=== PATIENT | male | born 1935 | race Caucasian/White ===

== ENCOUNTER 2016-08-30 13:33 | Inpatient (IN) | payer MEDICARE ==
[2016-08-30] VITALS (9 sets, daily range): BP systolic 89–132; BP diastolic 50–82
[~2016-08-30] VITALS: Ht 183 cm; Wt 71.0 kg
--- NOTE | ~2016-08-30 | PR ---
[place], [place] PROGRESS NOTE NAME: GRACIELA MAYNARD UNIT #: [id number] ROOM: 406 DOCTOR: CANDELARIO TAY MD,SHERRIE BIRTHDATE: [birth year] DOS: 09/01/2016 SUBJECTIVE: He has been noted without any ongoing acute complaint, shortness of breath was noted partially decreased. The patient has not been noted with any symptoms of chest pain. Mild to moderate nonproductive cough for this patient was noted. There were no symptoms of abdominal pain. OBJECTIVE: VITAL SIGNS: For the patient, which has been recorded shows the temperature of the patient noted as normal. The respiratory rate of 18, heart rate of 82, blood pressure 112/62-104/60. Pulse oxygen saturation of the patient was noted on 3 liters nasal canula 99% saturation. HEENT: Shows head was atraumatic. Eyes: Nonicterus. NECK: Supple. CARDIOVASCULAR SYSTEM: S1, S2 is audible. LUNGS: No wheezing. Inspiratory crackles noted in the lungs bilaterally, unchanged. ABDOMEN: Soft, nontender. LABORATORY DATA: CBC: WBC count 13,000, hemoglobin 13.2, hematocrit 40.9, platelet count of 181,000. BMP of the patient, glucose 150, BUN and creatinine was normal. Urine culture showed no bacterial growths. IMPRESSION: 1. The patient with acute hypoxic respiratory failure with suspected interstitial pulmonary fibrosis. 2. Superimposed pulmonary process, the patient acute pneumonia and others for this patient has been already considered as well. ASSESSMENT AND MANAGEMENT: For this patient has been discussed with the patient and his daughter in detail at the bedside. Most likely, the patient has been developing progressive interstitial pulmonary fibrosis as admitted having symptoms of shortness of breath, gradually occurring with exertion with exercise intolerance for over a year. PLAN OF TREATMENT: The patient will be continued on the corticosteroids for this patient at this time. The dose has been ordered to be decreased. He will be requiring oxygen supplementation, most likely prior to the discharge in the home settings. Oxygen assessment patient for potential discharge for the patient has been ordered for this patient to be done. Reduce the dose of the corticosteroids as well. Continuation of the therapy, plan and management, usual treatment. Supportive care. Other treatment and plan of management. [place], [place] PROGRESS NOTE NAME: GRACIELA MAYNARD UNIT #: [id number] ROOM: 406 DOCTOR: SHERRIE FREY MD BIRTHDATE: [birth year] SHERRIE PALOMINO MD CM:PNMICHELLE 1254 SHERRIE TAY MD 09/01/16 2227 interface
--- NOTE | ~2016-08-30 | PR ---
[place], [place] PROGRESS NOTE NAME: GRACIELA MAYNARD [facility] #: [id number] UNIT #: [id number] ROOM: 406 DOCTOR: CANDELARIO TAY MD,SHERRIE BIRTHDATE: [birth year] DOS: 09/03/2016 SUBJECTIVE: The patient was seen and examined on 09/03/2016. He has been noted comfortable at this time. The patient has not been discharged yesterday as he has been noted with hypoxia. The patient moved from the bed to the bathroom. He had been continued on oxygen supplementation and other previous treatment without change in the last 24 hours. OBJECTIVE: VITAL SIGNS: Normal temperature, respiratory rate 20, heart rate 84, blood pressure 103/58. The pulse oxygen saturation of the patient recorded as 95% on 3.5 liters nasal cannula, 4 liter nasal cannula 99% saturation recorded at rest. HEENT: Head was atraumatic. Eyes nonicterus. NECK: Supple. CARDIOVASCULAR: S1 and S2 audible. LUNGS: Noted without any wheezing. Inspiratory crackles noted, unchanged from previous examination. ABDOMEN: Soft, nontender. LABORATORY DATA: BUN today noted 26, creatinine was normal. CBC of the patient that was done this morning shows mild anemia, otherwise normal CBC. IMPRESSION: 1. Interstitial pulmonary fibrosis with acute hypoxic respiratory failure with possible chronic hypoxia as well. 2. Dyspnea with exertion, not uncommon. PLAN OF TREATMENT: No change in the pulmonary standpoint, discharge the patient home whenever is necessary on oral medications and continuous oxygen supplementation. Usual care. SHERRIE PALOMINO MD CM:PNTRANS [id number] SHERRIE TAY MD 09/03/169 interface
--- NOTE | ~2016-08-30 | WRIGHTHP ---
[place], [place] PATIENT HISTORY AND PHYSICAL EXAM NAME: GRACIELA MAYNARD [facility] #: [id number] UNIT #: [id number] ROOM: 406 DOCTOR: LINDEN GRANADO DO BIRTHDATE: [birth year] DOS: 08/30/2016 PRIMARY CARE PHYSICIAN: Dr. Zepeda. HISTORY OF PRESENT ILLNESS: The patient was seen and evaluated with the resident on 08/30/2016. Please see the resident's note for further details. ASSESSMENT: 1. Acute pneumonitis. 2. Acute respiratory failure with hypoxia. 3. Acute renal failure with history of chronic kidney disease stage 3. 4. Coronary artery disease with history of coronary artery bypass graft in the past as well as multiple cardiac stents. 5. History of hypertension. 6. Hyperlipidemia. 7. Gastroesophageal reflux disease. 8. History of bilateral carotid endarterectomies. PLAN: Continue IV steroids, antibiotics and aerosol treatments. Repeat labs in the morning. Consult Dr. Zhou. LINDEN GRANADO DO CM:HISPHYS:PATIENT HISTORY AND PHYSICAL EXAMINATION 14 01 LINDEN GRANADO DO 08/30/162200 interface
--- NOTE | ~2016-08-30 | PR ---
[place], [place] PROGRESS NOTE NAME: GRACIELA MAYNARD UNIT #: [id number] ROOM: 406 DOCTOR: SHERRIE FREY MD BIRTHDATE: [birth year] DOS: 09/02/2016 SUBJECTIVE: He was seen and examined on 09/02/2016. The patient is comfortably resting on the bed, has not been noted with symptoms of chest pain, coughing, or sputum expectoration. Shortness of breath was described with exertion. He has been assessed for oxygen needs for home yesterday. OBJECTIVE: VITAL SIGNS: Shows normal temperature, respiratory rate of 18, heart rate of 72, blood pressure of 95/51 to 102/50. HEENT: Examination shows head was atraumatic. Eyes: No icterus. NECK: Supple. CARDIOVASCULAR: S1, S2 audible. LUNGS: Noted inspiratory crackles bilaterally. ABDOMEN: Soft and nontender. LABORATORY DATA: Mycoplasma IgG and IgM were noted as normal. The BMP for this patient, BUN 25, creatinine was normal. CBC: WBC count 12.7, hemoglobin 12.9, hematocrit 38.8 with a platelet count was noted as normal. The anti-Lizet-1 antibody was noted as negative. IMPRESSION: The patient with acute hypoxic respiratory failure, most likely chronic hypoxic respiratory failure, undiagnosed, currently treated for interstitial infiltration with possibly superimposed pulmonary infection. The etiology of the interstitial pulmonary fibrosis remains unclear. Some of the workup has been started and available partially and noted to be negative. Possibility of interstitial pulmonary fibrosis for this patient idiopathic or UIP was considered. PLAN OF TREATMENT: The patient could be discharged on tapering dose of prednisone, oral antibiotics and outpatient followup. The oxygen supplementation will be needed, 3 liters nasal cannula continuous use for the patient for the medical management of hypoxic respiratory failure. Other treatment plan and management to be continued as well. Usual care. Other supportive care and other therapies. Discharge planning was discussed with the patient's daughter and the primary care attending. [place], [place] PROGRESS NOTE NAME: GRACIELA MAYNARD UNIT #: [id number] ROOM: 406 DOCTOR: SHERRIE FREY MD BIRTHDATE: [birth year] SHERRIE PALOMINO MD CM:PNTRANS 1322 SHERRIE TAY MD 09/02/16 2243 interface
--- NOTE | ~2016-08-30 | CON ---
[place], [place] REPORT OF CONSULTATION NAME: GRACIELA MAYNARD [facility] #: [id number] UNIT #: [id number] ROOM: 406 DOCTOR: CANDELARIO TAY MD,SHERRIE BIRTHDATE: [birth year] DOS: 08/31/2016 The consultation requested by Dr. Bry Nieves, the hospitalist. REASON FOR CONSULTATION: To assess the patient for possibility of interstitial lung disease with respiratory failure. HISTORY OF PRESENT ILLNESS: An 81-year-old white male who was seen and examined on 08/31/2016. The history was also obtained from the patient's son as well at the time of the assessment. The patient presented to the hospital as he has been experiencing increased shortness of breath, occurring with exertional activities. The patient's symptoms have been noted progressive for the past few days. The patient stated symptoms of shortness of breath, has been occurring about 6 months ago, which has been noted significantly worsened. The patient underwent lumbar laminectomy done previously. He does have symptoms of very mild cough. The patient denies symptoms of wheezing or chest pain. The patient denies any symptoms of hemoptysis. REVIEW OF SYSTEMS: CONSTITUTIONAL: The patient is limited, but noted as symptoms of weakness and fatigue for this patient was described for the past several months. Denies any symptoms of loss of appetite. He has not reported any abnormal weight loss history. EYES: Denies any burning, redness, or tenderness. EARS, NOSE, THROAT SYMPTOMS: No sore throat, hoarseness, or otalgia. CARDIOVASCULAR: Denies anginal pain, edema or pain of the lower extremities. GASTROINTESTINAL: Denies symptoms of nausea, vomiting, diarrhea, abdominal pain, hematemesis, melena, hematochezia or dysphagia. GENITOURINARY: Denies dysuria, suprapubic pain, hematuria. SKIN: No lesions or rashes. CENTRAL NERVOUS SYSTEM: Generalized weakness without symptoms of dizziness, headache, diplopia, tingling sensation of the extremities. Remaining systems were reviewed with the patient, they were noted all negative. PAST MEDICAL HISTORY: 1. Coronary artery disease noted with previous coronary artery bypass grafting and coronary stents insertion. 2. Degenerative arthritis, lower back. 3. History of essential hypertension. 4. Hyperlipidemia. PAST SURGICAL HISTORY: 1. Coronary artery bypass grafting many years ago. 2. Several cardiac catheterizations and coronary artery stents insertion. 3. Bilateral carotid artery stents. 4. Lumbar laminectomy. SOCIAL HISTORY: The patient denies any history of alcohol use, illicit drug use. He does not have any occupation related pulmonary exposure. The patient stated he had smoked only a year or so when he was age [age] years old, but have [place], [place] REPORT OF CONSULTATION [id number] UNIT #: [id number] ROOM: 406 DOCTOR: SHERRIE FREY MD BIRTHDATE: [birth year] not smoked cigarettes for this patient as a regular smoker. The patient was self employed and has not been reported any exposure to any dust or chemicals. FAMILY HISTORY: Mother at the age of 80 plus years of unknown problems. Father at age of 70 due to complication of coronary artery disease. HOME MEDICATIONS: Listed as use of Norvasc, aspirin, calcium, vitamin D3, Plavix, famotidine, Imdur SA, Namenda XR, metoprolol tartrate, multivitamin, Crestor and multivitamin and other p.r.n. medications. DRUG ALLERGIES: Noted allergy to PENICILLINS. PHYSICAL EXAMINATION: GENERAL: This is an 81-year-old elderly male who has been currently comfortably resting on the bed without any distress. VITAL SIGNS: Height for the patient noted as 6 feet, weight of 156 pounds, BMI 21.2. The vital signs of the patient which has been recorded on admission normal temperature, respiratory rate of 17-18, heart rate 78-74, blood pressure 80/53-132/82. Intake for the patient recorded at 2000, output 550 mL. Pulse oxygen saturation on room air 80% with 3 liters nasal cannula. The patient was noted 98% saturation. HEENT: Head was atraumatic, mild senile hearing loss. NECK: Supple. Head was atraumatic. CARDIOVASCULAR SYSTEM: S1, S2 is audible. LUNGS: For the patient was noted without any wheezing or crackles the patient noted in the lungs bilaterally. ABDOMEN: Soft, nontender. EXTREMITIES: Shows no edema. CENTRAL NERVOUS SYSTEM: Cranial nerves II through XII intact. No focal deficits. MUSCULOSKELETAL: The patient was noted without any deformities. LABORATORY DATA: The rapid influenza A and B nasal washing antigens yesterday was noted as negative. Lactic acid 1.9 yesterday. CK-MB and troponin for this patient were noted as normal in the patient's first set. CBC for the patient that was noted on 08/30/2016 was noted as normal. CBC with normal WBC, hemoglobin, hematocrit and platelet count. Lactic acid on admission was noted 5.9. CMP of the patient that was done on 08/30/2016 showed BUN 28, creatinine 1.98, glucose 130. For this patient, magnesium 2.2. Influenza A and B, nasal washing antigens were negative. CK-MB, troponin of patient yesterday and this morning were noted as normal. CBC of patient this morning, the patient remains normal. CMP of the patient that was done this morning shows BUN 21, creatinine 1.81, glucose 154, carbon dioxide was 20. PT and PTT were noted normal this morning. B12 and folic acid levels were noted as normal. Vitamin D level noted decreased. Arterial blood gas that I ordered this morning on 3 L nasal cannula, pH of 7.35, pCO2 of 31.2, pO2 of 128. Review of the radiology data for this patient, the last chest x-ray of the patient, which has been done in this hospital prior to the current chest x-ray done on 10/04/2011, which was personally reviewed and noted free of any acute [place], [place] REPORT OF CONSULTATION NAME: [facility] [id number] UNIT #: [id number] ROOM: [facility] DOCTOR: CANDELARIO TAY MDSHERRIE BIRTHDATE: [birth year] abnormalities related to the lungs. The chest x-ray, 2-view, which was done yesterday in the Emergency Room was personally reviewed, shows evidence of diffuse interstitial infiltration of the lungs were noted without any evidence of pleural effusions. The CT scan of the chest, which was done without contrast for the patient yesterday as well was personally reviewed and it shows findings of bilateral interstitial pattern for this patient with appear like UIP distribution for this patient with mild honeycombing. Nonspecific enlargement of the lymph nodes for the patient was also noted. The lymph nodes of this patient in subcarinal with short axis as 1.6 cm in the precarinal area, AP windows and others. The exact evaluation of the mediastinum is limited because of lack of use of IV contrast with the study. IMPRESSION: 1. The patient who has been currently admitted to the hospital noted with acute hypoxic respiratory failure, most likely acute in nature would be considered. The patient has not been known with past history of hypoxia. 2. Interstitial pattern for this patient was noted diffusely in the lungs bilateral with lymphadenopathy with possible differential diagnosis of sarcoidosis for this patient, chronic hypersensitivity pneumonitis, less likely to be acute eosinophilic pneumonia, possibility of acute interstitial pneumonitis for this patient with bacterial nature or viral could be considered in the differential diagnosis as well. 3. History of long-term coronary artery disease as well. 4. The patient most likely has acute kidney injury with possibility of hypotension and ATN, partially improved from yesterday. PLAN OF TREATMENT: Workup for the interstitial lung disease has been ordered with serology. TB Gold test was also noted as part of the workup. The patient would be continued on the Levaquin for this patient. Corticosteroids has been started on the patient yesterday which will be continued for this patient. The dose will be gradually decreased. Based on the further assessment, additional management could be ordered and the assessment will be ordered accordingly. Supportive therapy, plan of management, and other care. Continue supplementation of the oxygen to maintain saturation 90% greater. The patient will not require use of the BiPAP at the present time. All other supportive therapy, plan of care as in progress as well. Usual care. Monitoring kidney functions as well. Lactic acid of the patient, etiology was not very clear to me, may be related to the sepsis seemed to be resolved. Thanks for allowing me to participate in the care of this patient. [place], [place] REPORT OF CONSULTATION NAME: GRACIELA MAYNARD [facility] UNIT #: [id number] ROOM: 406 DOCTOR: SHERRIE FREY MD BIRTHDATE: [birth year] SHERRIE PALOMINO MD CM:CONSTR:REPORT OF CONSULTATION 1334 09/01/16 0918 interface
[~2016-08-30 13:33] MED LIST: AMLODIPINE5 MG PO; AZOPT 1% 10 ML5 ML INTRAOC; AZOPT OP; BETAXOLOL OP; COMPAZINE10 MG PO; CRESTOR20 MG PO; CRESTOR40 MG PO; DARVOCET N 1001 TAB PO; ECOTRIN81 MG PO; FAMOTIDINE20 MG PO; IMDUR SA60 M1 PO; LISINOPRIL20 MG PO; METOPROLOL25 MG PO; MULTIPLE VITAMI1 CAP PO; NORVASC5 MG PO; PERCOCET 325 MG1 TA2 PO; PLAVIX75 MG PO; PREDNISONE50 MG PO; TIMOPTIC 0.5% 55 ML OPH; ULTRAM50 MG PO; VICODIN 5-3001 EACH PO; XALATAN 2.5 ML2.5 M1 OP
[2016-08-30] MEDS ORDERED: NAMENDA-5 PO (13:48)
[2016-08-30 14:30] LABS: BASO # 0.1 10*3/uL (0.0-0.1); BASO % 1.1 % (0.0-1.0); EOS # 0.4 10*3/uL (0.0-0.4); EOS % 3.7 % (1.0-4.0); HEMATOCRIT 47.8 % (42.0-52.0); HEMOGLOBIN 15.4 g/dl (14.0-18.0); IG # 0.1 10*3/uL (0.0-0.1); LYMPH # 1.5 10*3/uL (1.3-4.4); LYMPH % 14.5 % (27.0-41.0); MEAN CELL VOLUME 101.1 fl (80.0-94.0); MEAN CORPUSCULAR HGB 32.6 pg (27.0-31.0); MEAN CORPUSCULAR HGB CONC 32.2 g/dl (33.0-37.0); MEAN PLATELET VOLUME 9.4 fl (9.6-12.3); MONO # 0.7 10*3/uL (0.1-1.0); MONO % 6.7 % (3.0-9.0); NEUT # 7.5 10*3/uL (2.3-7.9); NEUT % 73.5 % (47.0-73.0); PLATELET COUNT AUTOMATED 199 10*3/uL (130-400); RED BLOOD COUNT 4.73 10*6/uL (4.50-5.90); RED CELL DISTRI WIDTH 14.1 % (0-14.5); WHITE BLOOD COUNT 10.2 10*3/uL (4.8-10.8)
[2016-08-30 14:45] LABS: INTERNATIONAL NORM RATIO 1.1 (2.0-3.5); PROTHROMBIN TIME 11.4 SECONDS (9.0-12.4)
[2016-08-30 14:48] LABS: BILIRUBIN, TOTAL 0.7 mg/dl (0.2-1.0); CKMB 3.2 ng/ml (0.5-3.6); MAGNESIUM 2.2 mg/dL (1.5-2.1); POTASSIUM 5.1 mmol/L (3.5-5.1); TROPONIN I 0.034 ng/ml (<0.5)
[2016-08-30 16:27] LABS: LA>2 REFLEX 2 HR DRAW NOW
[2016-08-30 16:33] LABS: BILIRUBIN NEGATIVE (NEGATIVE); BLOOD 1+ (NEGATIVE); COLOR YELLOW (YELLOW); GLUCOSE NEGATIVE (NEGATIVE); KETONE NEGATIVE (NEGATIVE); LEUKO ESTERASE NEGATIVE (NEGATIVE); NITRITE NEGATIVE (NEGATIVE); PH 5.5 (5.0-9.0); PROTEIN 2+ (NEGATIVE); SPECIFIC GRAVITY >= 1.030 (1.005-1.030)
[2016-08-30 16:49] LABS: CLARITY SL CLOUDY (CLEAR); HYALINE CAST TNTC; MUCOUS TRACE; RBC 16-20 rbc/hpf (0-2); URINE REFLEX COMMENT YES (NO)
[2016-08-30] MEDS ORDERED: NAMENDA XR7 M1 PO (17:06)
[2016-08-30] MEDS ORDERED: CALCIUM 600600 M2 PO (18:04)
[2016-08-30] MEDS ORDERED: VITAMIN D-32000 UNI1 PO (18:05)
[2016-08-31] VITALS: BP 118/46
[2016-08-31 01:05] LABS: CKMB 2.8 ng/ml (0.5-3.6); TROPONIN I 0.034 ng/ml (<0.5)
[2016-08-31 06:22] LABS: BASO % 0.5 % (0.0-1.0); EOS % 0.2 % (1.0-4.0); HEMATOCRIT 45.7 % (42.0-52.0); HEMOGLOBIN 14.5 g/dl (14.0-18.0); LYMPH # 0.5 10*3/uL (1.3-4.4); LYMPH % 8.8 % (27.0-41.0); MEAN CELL VOLUME 101.1 fl (80.0-94.0); MEAN CORPUSCULAR HGB 32.1 pg (27.0-31.0); MEAN CORPUSCULAR HGB CONC 31.7 g/dl (33.0-37.0); MEAN PLATELET VOLUME 9.9 fl (9.6-12.3); MONO # 0.1 10*3/uL (0.1-1.0); NEUT # 5.1 10*3/uL (2.3-7.9); NEUT % 88.8 % (47.0-73.0); PLATELET COUNT AUTOMATED 189 10*3/uL (130-400); RED BLOOD COUNT 4.52 10*6/uL (4.50-5.90); RED CELL DISTRI WIDTH 13.9 % (0-14.5); WHITE BLOOD COUNT 5.8 10*3/uL (4.8-10.8)
[2016-08-31 06:30] LABS: TROPONIN I 0.027 ng/ml (<0.5)
[2016-08-31 06:59] LABS: BILIRUBIN, TOTAL 0.5 mg/dl (0.2-1.0); FREE T4 1.1 ng/dl (0.76-1.46); HEMOGLOBIN A1c 5.9 % (4.8-5.6); MAGNESIUM 2.2 mg/dL (1.5-2.1); PHOSPHOROUS 3.5 mg/dL (2.5-4.9); POTASSIUM 4.3 mmol/L (3.5-5.1); TOTAL PROTEIN 6.5 gm/dL (6.4-8.2)
[2016-08-31 07:23] LABS: PROTHROMBIN TIME 11.1 SECONDS (9.0-12.4)
[2016-08-31 07:34] LABS: FOLIC ACID 21.69 ng/mL (>5.38)
[2016-08-31 10:09] LABS: ABG CO2 CONTENT 18.2 mmol/L (23-27); ABG HCO3 17.2 mmol/l (22-26); ARTERIAL BLOOD GAS PH 7.356 (7.35-7.45)
[2016-08-31 12:00] VITALS: BP 102/69
[2016-08-31 16:00] VITALS: BP 96/52
[2016-08-31] MEDS ORDERED: CRESTOR20 M1 PO (16:01)
[2016-08-31] MEDS ORDERED: PLAVIX75 M1 PO (16:02)
[2016-08-31 20:00] VITALS: BP 120/62
[2016-09-01] VITALS: BP 129/67
[2016-09-01 06:17] LABS: BASO % 0.1 % (0.0-1.0); HEMATOCRIT 40.9 % (42.0-52.0); HEMOGLOBIN 13.2 g/dl (14.0-18.0); IG # 0.1 10*3/uL (0.0-0.1); LYMPH # 0.7 10*3/uL (1.3-4.4); LYMPH % 5.1 % (27.0-41.0); MEAN CELL VOLUME 99.8 fl (80.0-94.0); MEAN CORPUSCULAR HGB 32.2 pg (27.0-31.0); MEAN CORPUSCULAR HGB CONC 32.3 g/dl (33.0-37.0); MEAN PLATELET VOLUME 9.7 fl (9.6-12.3); MONO # 0.5 10*3/uL (0.1-1.0); MONO % 4.1 % (3.0-9.0); NEUT # 11.7 10*3/uL (2.3-7.9); PLATELET COUNT AUTOMATED 181 10*3/uL (130-400)
[2016-09-01 06:40] LABS: BUN 20 mg/dl (7-24); CARBON DIOXIDE 25 mmol/L (21-32); CHLORIDE 107 mmol/L (98-107); EST GLOM FILT AFRICAN AMERICAN > 60 ml/min; GLUCOSE 150 mg/dL (65-99); POTASSIUM 4.5 mmol/L (3.5-5.1); SODIUM 142 mmol/L (136-145)
[2016-09-01 08:00] VITALS: BP 104/60
[2016-09-01 08:08] LABS: RHEUMATOID ARTHRITIS FACTOR 114.9 IU/mL (0.0-13.9)
[2016-09-01 09:10] LABS: IMMUNOGLOBULIN IgE 002170 334 IU/mL (0-100)
[2016-09-01 12:00] VITALS: BP 112/62
[2016-09-01 15:08] LABS: ANGIOTENSIN-CONVERTING ENZYME 37 U/L (14-82)
[2016-09-01 16:00] VITALS: BP 97/58
[2016-09-01 20:00] VITALS: BP 100/58
[2016-09-01 21:00] VITALS: BP 106/60
[2016-09-02] VITALS: BP 107/58
[2016-09-02 00:07] LABS: IGG SUBCLASS 1 493 mg/dL (422-1292); IGG SUBCLASS 2 349 mg/dL (117-747); IGG SUBCLASS 3 194 mg/dL (41-129); IGG SUBCLASS 4 57 mg/dL (1-291)
[2016-09-02 06:38] LABS: BASO % 0.1 % (0.0-1.0); HEMATOCRIT 38.8 % (42.0-52.0); HEMOGLOBIN 12.9 g/dl (14.0-18.0); IG # 0.1 10*3/uL (0.0-0.1); LYMPH # 0.8 10*3/uL (1.3-4.4); MEAN CELL VOLUME 97.5 fl (80.0-94.0); MEAN CORPUSCULAR HGB 32.4 pg (27.0-31.0); MEAN CORPUSCULAR HGB CONC 33.2 g/dl (33.0-37.0); MEAN PLATELET VOLUME 9.8 fl (9.6-12.3); MONO # 0.9 10*3/uL (0.1-1.0); MONO % 7.3 % (3.0-9.0); NEUT # 10.9 10*3/uL (2.3-7.9); PLATELET COUNT AUTOMATED 187 10*3/uL (130-400); RED BLOOD COUNT 3.98 10*6/uL (4.50-5.90); WHITE BLOOD COUNT 12.7 10*3/uL (4.8-10.8)
[2016-09-02 07:22] LABS: ALBUMIN 2.8 gm/dl (3.1-4.5); ALKALINE PHOSPHATASE 82 U/L (45-117); BILIRUBIN, TOTAL 0.5 mg/dl (0.2-1.0); BUN 25 mg/dl (7-24); CARBON DIOXIDE 24 mmol/L (21-32); CHLORIDE 106 mmol/L (98-107); EST GLOM FILT AFRICAN AMERICAN > 60 ml/min; GLUCOSE 111 mg/dL (65-99); MAGNESIUM 2.1 mg/dL (1.5-2.1); POTASSIUM 4.6 mmol/L (3.5-5.1); SGOT/AST 42 IU/L (3-35); SGPT/ALT 27 U/L (12-78); SODIUM 141 mmol/L (136-145); TOTAL PROTEIN 5.9 gm/dL (6.4-8.2)
[2016-09-02 08:00] VITALS: BP 102/50
[2016-09-02 12:00] VITALS: BP 95/51
[2016-09-02] MEDS ORDERED: PREDNISONE10 MG PO (13:04)
[2016-09-02] MEDS ORDERED: OXYGEN NAS (13:04)
[2016-09-02] MEDS ORDERED: NEBULIZER (13:04)
[2016-09-02] MEDS ORDERED: DUONEB 3 MG/3 ML3 M1 NEB (13:04)
[2016-09-02] MEDS ORDERED: LEVAQUIN750 M1 PO (13:04)
[2016-09-02 16:00] VITALS: BP 94/58
[2016-09-02 20:00] VITALS: BP 96/56
[2016-09-03] VITALS: BP 116/68
[2016-09-03 06:01] LABS: BASO % 0.1 % (0.0-1.0); HEMATOCRIT 40.2 % (42.0-52.0); HEMOGLOBIN 12.9 g/dl (14.0-18.0); IG # 0.1 10*3/uL (0.0-0.1); LYMPH # 0.7 10*3/uL (1.3-4.4); LYMPH % 6.9 % (27.0-41.0); MEAN CELL VOLUME 99.3 fl (80.0-94.0); MEAN CORPUSCULAR HGB 31.9 pg (27.0-31.0); MEAN CORPUSCULAR HGB CONC 32.1 g/dl (33.0-37.0); MEAN PLATELET VOLUME 9.9 fl (9.6-12.3); MONO # 0.9 10*3/uL (0.1-1.0); MONO % 8.4 % (3.0-9.0); NEUT # 8.5 10*3/uL (2.3-7.9); NEUT % 83.6 % (47.0-73.0); PLATELET COUNT AUTOMATED 179 10*3/uL (130-400); RED BLOOD COUNT 4.05 10*6/uL (4.50-5.90); RED CELL DISTRI WIDTH 14.1 % (0-14.5); WHITE BLOOD COUNT 10.2 10*3/uL (4.8-10.8)
[2016-09-03 06:37] LABS: ALBUMIN 2.8 gm/dl (3.1-4.5); ALKALINE PHOSPHATASE 88 U/L (45-117); BILIRUBIN, TOTAL 0.6 mg/dl (0.2-1.0); BUN 26 mg/dl (7-24); CARBON DIOXIDE 26 mmol/L (21-32); CHLORIDE 105 mmol/L (98-107); EST GLOM FILT AFRICAN AMERICAN > 60 ml/min; GLUCOSE 128 mg/dL (65-99); MAGNESIUM 2.2 mg/dL (1.5-2.1); POTASSIUM 4.6 mmol/L (3.5-5.1); SGOT/AST 52 IU/L (3-35); SGPT/ALT 36 U/L (12-78); SODIUM 141 mmol/L (136-145); TOTAL PROTEIN 5.8 gm/dL (6.4-8.2)
[2016-09-03 08:00] VITALS: BP 101/55
[2016-09-03 12:00] VITALS: BP 103/58
[2016-09-04 14:08] LABS: MITOGEN VALUE 0.53 IU/mL (.); NIL VALUE 0.03 IU/mL (.); TB Ag VALUE 0.03 IU/mL (.); TB GOLD Negative (Negative)
== END 2016-09-03 15:49 | disposition home health service (06) | DRG 871 ==
LOC: ED 13:33 → 4E 16:40 → EDHOLD 16:40 → 4E 17:14
PROVIDERS: Emergency Medicine; Family Medicine; Internal Medicine; Internal Medicine Critical Care Medicine
DX: A41.9 Sepsis, unspecified organism (principal); J96.01 Acute respiratory failure with hypoxia; N17.0 Acute kidney failure with tubular necrosis; J18.9 Pneumonia, unspecified organism; E87.2 Acidosis; J44.0 Chronic obstructive pulmonary disease with (acute) lower respiratory infection; N18.3 Chronic kidney disease, stage 3 (moderate); J84.10 Pulmonary fibrosis, unspecified; E44.1 Mild protein-calorie malnutrition; J44.1 Chronic obstructive pulmonary disease with (acute) exacerbation; R65.20 Severe sepsis without septic shock; R74.0 Nonspecific elevation of levels of transaminase and lactic acid dehydrogenase [LDH]; D53.9 Nutritional anemia, unspecified; I12.9 Hypertensive chronic kidney disease with stage 1 through stage 4 chronic kidney disease, or unspecified chronic kidney disease; E78.2 Mixed hyperlipidemia; K21.9 Gastro-esophageal reflux disease without esophagitis; I25.10 Atherosclerotic heart disease of native coronary artery without angina pectoris; I25.2 Old myocardial infarction; Z95.5 Presence of coronary angioplasty implant and graft; Z95.1 Presence of aortocoronary bypass graft; Z82.49 Family history of ischemic heart disease and other diseases of the circulatory system; Z88.0 Allergy status to penicillin; Z79.82 Long term (current) use of aspirin; Z79.899 Other long term (current) drug therapy; Z68.21 Body mass index [BMI] 21.0-21.9, adult